=== PATIENT | male | born 2000 | race African-American/Black ===

== ENCOUNTER 2019-06-30 15:21 | Emergency (ER) | payer SELFPAY ==
[~2019-06-30] VITALS: Ht 172.7 cm; Wt 61.0 kg
[2019-06-30] MEDS ORDERED: ACETAMINOPHEN WITH CODEINE 300/30MG TABLET PO ONE (19:15)
[2019-06-30 19:54] VITALS: BP 125/81
== END 2019-06-30 19:55 | disposition home or self-care (01) ==
LOC: ER 15:24
DX: S00.83XA Contusion of other part of head, initial encounter (principal); S60.410A Abrasion of right index finger, initial encounter; W20.8XXA Other cause of strike by thrown, projected or falling object, initial encounter; Y93.89 Activity, other specified; Y92.89 Other specified places as the place of occurrence of the external cause
CPT/HCPCS: 70450; 73140; 99284; Z7610